=== PATIENT | male | born 1960 | race Caucasian/White ===

== ENCOUNTER 2016-09-21 21:23 | Inpatient (IN) | payer OTHER ==
[2016-09-21] MEDS ORDERED: Acetaminophen/oxyCODONE 325-5 MG Tab PO STA (21:45)
[2016-09-21] MEDS ORDERED: Diazepam 5 MG Tab PO ONE (21:45)
--- NOTE | 2016-09-21 21:50 | EDM.PDOC ---
ED HPI Trauma - General Chief Complaint: Lower Extremity Injury/Pain Stated Complaint: FALL, LEFT HIP PAIN Time Seen by Provider: 09/21/16 21:33 Source: Reports: Patient History Limitations: Reports: No limitations - History of Present Illness INITIAL COMMENTS - FREE TEXT/NARRATIVE: Blue is a 56 year old male with a hx of high cholesterol who presents to the ED today via private care with c/o left hip pain after slipping and falling on the ice and landing on his left hip. Patient reports increased pain shooting down his left leg when he tries to walk on it. He has not had anything for pain. Patient denies any other injuries, denies any neck, head, or back trauma. Occurred When: just prior to arrival Method of Injury: fall Severity: moderate Pain/Injury Location: Reports: lower extremity, left Associated Symptoms: Reports: denies other symptoms Allergies/ADRs: Allergies Penicillins Allergy (Verified 09/21/16 21:35) Rash Home Medications: Ambulatory Orders Simvastatin [Zocor] 40 mg PO BEDTIME 09/21/16 [Confirmed 09/21/16] Past Medical History Cardiovascular History: Reports: High cholesterol Review of Systems - Review of Systems Review Of Systems: ROS reveals no pertinent complaints other than HPI. Trauma Exam - Physical Exam Exam: See Below Exam Limited By: No limitations General Appearance: Reports: alert, WD/WN, no apparent distress Head: Reports: atraumatic Neck: Reports: non-tender, full range of motion Respiratory Exam: Reports: no respiratory distress Cardiovascular: Reports: normal peripheral pulses Extremities: Reports: pelvis stable, pain with movement, other (tenderness to left hip/proximal left femur region on exam, no obvious defomity, distal and proximal pulses are intact, strength to left foot flexion/extension is 5/5. Pelvis is stable. Patient with femur manipulation) Neurologic: Reports: no motor/sensory deficits, oriented x 3 Course - Vital Signs Text/Narrative:: Blue is a 56 year old male with a hx of high cholesterol who presents to the ED tonight with c/o left hip pain after slipping and falling on the ice, landing on his left hip. Patient denies any other injuries. Please refer to HPI and focused exam. Concerns for hip vs. pelvis vs. proximal femur fracture. No deformity on exam and CMS is intact. Patient was given Percocet and Valium while in the ED for pain and muscle spasm. Femur Xray obtained as well as CT of pelvis and left hip which shows an acute non-displaced intertrochanteric fracture. I spoke with CINTHYA Foreman with orthopedics who will be in to evaluate patient. PIV established and patient given morphine for pain control. Basic lab work pending. Last Recorded V/S: Last Vital Signs Temp 37.3 C 09/21/16 22:37 Pulse 76 09/21/16 22:37 Resp 16 09/21/16 22:37 BP 116/75 09/21/16 22:37 Pulse Ox 94 L 09/21/16 22:37 - Orders/Labs/Meds Orders: Active Orders 24 hr Category Date Time Status Peripheral IV Care [RC] . DIRECTED Care 09/21/16 23:10 Active Femur Min 2V Lt [CR] Stat Exams 09/21/16 21:46 Taken Hip wo Cont Lt [CT] Stat Exams 09/21/16 21:53 Taken Pelvis wo Cont [CT] Stat Exams 09/21/16 21:53 Ordered BASIC METABOLIC PANEL,BMP [CHEM] Stat Lab 09/21/16 23:11 Ordered CBC WITH AUTO DIFF [HEME] Stat Lab 09/21/16 23:11 Ordered Sodium Chloride 0.9% [Saline Flush] Med 09/21/16 23:10 Active 10 ml FLUSH ASDIRECTED PRN Peripheral IV Insertion Adult [OM.PC] Routine Oth 09/21/16 23:10 Ordered Medication Orders Sodium Chloride (Saline Flush) 10 ml FLUSH ASDIRECTED PRN PRN Reason: Keep Vein Open Meds: Medications Generic Name Dose Route Start Last Admin Trade Name Freq PRN Reason Stop Dose Admin Sodium Chloride 10 ml 09/21/16 23:10 Saline Flush FLUSH ASDIRECTED PRN Keep Vein Open Discontinued Medications Generic Name Dose Route Start Last Admin Trade Name Freq PRN Reason Stop Dose Admin Diazepam 10 mg 09/21/16 21:45 09/21/16 21:56 Valium. PO 09/21/16 21:46 10 mg ONETIME ONE Administration Morphine Sulfate 4 mg 09/21/16 23:10 Morphine IVPUSH 09/21/16 23:11 ONETIME ONE Oxycodone/Acetaminophen 2 tab 09/21/16 21:45 09/21/16 21:56 Percocet 325-5 Mg PO 09/21/16 21:46 2 tab ONETIME STA Administration Departure - Departure Time of Disposition: 23:30 Disposition: Admitted As Inpatient 65 Condition: good Clinical Impression: Intertrochanteric fracture, hip Forms: ED Department Discharge - My Orders Last 24 Hours: My Active Orders 09/21/16 21:46 Femur Min 2V Lt [CR] Stat 09/21/16 21:53 Hip wo Cont Lt [CT] Stat Pelvis wo Cont [CT] Stat 09/21/16 23:10 Peripheral IV Care [RC] . DIRECTED Sodium Chloride 0.9% [Saline Flush] 10 ml FLUSH ASDIRECTED PRN Peripheral IV Insertion Adult [OM.PC] Routine 09/21/16 23:11 BASIC METABOLIC PANEL,BMP [CHEM] Stat CBC WITH AUTO DIFF [HEME] Stat - Assessment/Plan Last 24 Hours: My Active Orders 09/21/16 21:46 Femur Min 2V Lt [CR] Stat 09/21/16 21:53 Hip wo Cont Lt [CT] Stat Pelvis wo Cont [CT] Stat 09/21/16 23:10 Peripheral IV Care [RC] . DIRECTED Sodium Chloride 0.9% [Saline Flush] 10 ml FLUSH ASDIRECTED PRN Peripheral IV Insertion Adult [OM.PC] Routine 09/21/16 23:11 BASIC METABOLIC PANEL,BMP [CHEM] Stat CBC WITH AUTO DIFF [HEME] Stat
[2016-09-21] MEDS ORDERED: Morphine 4 MG/ML Syringe IVPUSH ONE (23:10)
[2016-09-21] MEDS ORDERED: Sodium Chloride 0.9% 10 ML Syringe FLUSH PRN (23:10)
--- NOTE | 2016-09-22 00:03 | PCM.CONS ---
H&P History of Present Illness - General Date of Service: 09/21/16 Source of Information: Patient History Limitations: Reports: No limitations - History of Present Illness Initial Comments - Free Text/Narative: Blue is a 56 year old gentleman who I had the pleasure of meeting tonight. He states that he was ice fishing and slipped on the ice landing on his left hip. He notes no other injuries. He states that alcohol was not involved. He noted immediate pain in that are. He notes that he made his way [place] to [place] and was brought in by his friend to the ER. The ER did an xray and a CT and noted that he had an acute nondisplaced intertrochanteric fracture in the left femur. He was given morphine and valium and is doing well with pain control at this time. Onset of Symptoms: Reports: today Symptom Onset Time: 20:00 Location: Reports: lower extremity, left Quality: Reports: Ache Improves with: Reports: Rest Worsens with: Reports: Movement Associated Symptoms: Reports: denies other symptoms 9 Pain Score (Numeric/FACES): 6 - Related Data Allergies/Adverse Reactions: Allergies Allergy/AdvReac Type Severity Reaction Status Date / Time Penicillins Allergy Rash Verified 09/21/16 21:35 Home Medications: Home Meds Simvastatin [Zocor] 40 mg PO BEDTIME 09/21/16 [History] Acetaminophen/oxyCODONE [Percocet 325-5 MG] 2 tab PO Q4H PRN #120 tablet [Rx] Aspirin [Ecotrin] 325 mg PO BID #60 tab.ec 09/24/16 [Rx] Past Medical History Cardiovascular History: Reports: High cholesterol H&P Review of Systems - Review of Systems: Review Of Systems: See Below General: Reports: no symptoms HEENT: Reports: no symptoms Pulmonary: Reports: No Symptoms Cardiovascular: Reports: no symptoms Gastrointestinal: Reports: No symptoms Genitourinary: Reports: no symptoms Musculoskeletal: Reports: leg pain, joint pain Skin: Reports: no symptoms Psychiatric: Reports: no symptoms Neurological: Reports: No Symptoms Hematologic/Lymphatic: Reports: no symptoms Immunologic: Reports: no symptoms Exam - Exam Exam: See Below - Vital Signs Vital Signs: Last Vital Signs Temp 37.3 C 09/21/16 22:37 Pulse 76 09/21/16 22:37 Resp 16 09/21/16 22:37 BP 116/75 09/21/16 22:37 Pulse Ox 94 L 09/21/16 22:37 Weight: 160 lb - Exam Extremities: normal pulses, other (Patient has slight external rotation and shortening of the left hip. ) Peripheral Pulses: 2+: dorsalis pedis (L), dorsalis pedis (R) Skin: warm, dry, intact Neurological: cranial nerves intact Neuro Extensive - Mental Status: alert, oriented x3, normal mood/affect, normal cognition, memory intact - Patient Data Lab Results last 24 hrs: Laboratory Results - last 24 hr 09/21/16 09/21/16 Range/Units 23:11 23:11 WBC 17.6 H (4.5-11.0) K/uL RBC 4.81 (4.30-5.90) M/uL Hgb 14.8 (12.0-15.0) g/dL Hct 43.7 (40.0-54.0) % MCV 91 (80-98) fL MCH 31 (27-31) pg MCHC 34 (32-36) % Plt Count 353 (150-400) K/uL Neut % (Auto) 88 H (36-66) % Lymph % (Auto) 6 L (24-44) % [place] % (Auto) 6 (2-6) % Eos % (Auto) 0 L (2-4) % Baso % (Auto) 0 (0-1) % Sodium 144 (140-148) mmol/L Potassium 3.8 (3.6-5.2) mmol/L Chloride 107 (100-108) mmol/L Carbon Dioxide 25 (21-32) mmol/L Anion Gap 12.2 (5.0-14.0) mmol/L BUN 22 H (7-18) mg/dL Creatinine 1.0 (0.8-1.3) mg/dL Est Cr Clr Drug Dosing 81.50 mL/min Estimated GFR (MDRD) > 60 (>60) Glucose 118 H (74-106) mg/dL Calcium 8.4 L (8.5-10.1) mg/dL Result Diagrams: 09/24/16 04:55 09/24/16 04:55 Consult PN Assessment/Plan Problem List Initiated/Reviewed/Updated: Yes Plan: I discussed case with Dr. Efe Nieto. We will have the hospitalist admit. We will plan on scheduling surgery at 1200 on 09/23/2016. We will order for Clindamycin to be given in OR. He will need to be NPO.
[2016-09-22] MEDS ORDERED: HYDROmorphone 0.5 MG/0.5 ML Syringe IVPUSH ONE (00:43)
--- NOTE | 2016-09-22 00:55 | PCM.HP ---
H&P History of Present Illness - General Date of Service: 09/22/16 Admit Problem/Dx: Source of Information: Patient, Provider, RN notes reviewed History Limitations: Reports: No limitations - History of Present Illness Initial Comments - Free Text/Narative: This patient is a 56-year-old gentleman who was admitted through the emergency room with a left hip fracture. He was out on the leg ice fishing when he slipped and fell on his left hip. On evaluation in the emergency Department has been found to have an intatrochanteric fracture of the left hip. He is otherwise relatively healthy and denies significant cardiac or pulmonary disease. He's never had surgery with general anesthesia and denies a family history of adverse reaction to general anesthetic. There is no personal or family history of deep vein thrombosis, pulmonary embolism, or bleeding abnormalities. - Related Data Allergies/Adverse Reactions: Allergies Allergy/AdvReac Type Severity Reaction Status Date / Time Penicillins Allergy Rash Verified 09/21/16 21:35 Home Medications: Home Meds Simvastatin [Zocor] 40 mg PO BEDTIME 09/21/16 [History] Past Medical History Cardiovascular History: Reports: High cholesterol H&P Review of Systems - Review of Systems: Review Of Systems: See Below General: Reports: no symptoms HEENT: Reports: no symptoms Pulmonary: Reports: no symptoms Cardiovascular: Reports: no symptoms Gastrointestinal: Reports: No symptoms Genitourinary: Reports: no symptoms Musculoskeletal: Reports: leg pain Skin: Reports: no symptoms Psychiatric: Reports: no symptoms Neurological: Reports: no symptoms Hematologic/Lymphatic: Reports: no symptoms Immunologic: Reports: no symptoms Exam - Exam Exam: See Below - Vital Signs Vital Signs: Last Vital Signs Temp 99.1 F 09/21/16 22:37 Pulse 76 09/21/16 22:37 Resp 16 09/21/16 22:37 BP 116/75 09/21/16 22:37 Pulse Ox 94 L 09/21/16 22:37 Weight: 160 lb - Exam Quality Assessment: DVT prophylaxis General: alert, oriented, cooperative, moderate distress HEENT: Conjunctiva clear, EOMI, Hearing intact, Mucosa moist & pink, Nares patent, Normal nasal septum, Posterior pharynx clear, Pupils equal, Pupils reactive Neck: supple, trachea midline, +2 carotid pulse wo bruit Lungs: Clear to auscultation, Normal respiratory effort Cardiovascular: regular rate, regular rhythm, normal S1, normal S2. No: irregular rhythm, bradycardia, tachycardia, systolic murmur, diastolic murmur Abdomen: normal bowel sounds, soft Extremities: other (External rotation of the left leg) Skin: warm, dry, intact Neurological: cranial nerves intact, strength equal bilateral, normal speech, normal tone, sensation intact. No: focal deficit Neuro Extensive - Mental Status: alert, oriented x3, normal mood/affect, normal cognition, memory intact - Patient Data Lab Results last 24 hrs: Laboratory Results - last 24 hr 09/21/16 09/21/16 Range/Units 23:11 23:11 WBC 17.6 H (4.5-11.0) K/uL RBC 4.81 (4.30-5.90) M/uL Hgb 14.8 (12.0-15.0) g/dL Hct 43.7 (40.0-54.0) % MCV 91 (80-98) fL MCH 31 (27-31) pg MCHC 34 (32-36) % Plt Count 353 (150-400) K/uL Neut % (Auto) 88 H (36-66) % Lymph % (Auto) 6 L (24-44) % [place] % (Auto) 6 (2-6) % Eos % (Auto) 0 L (2-4) % Baso % (Auto) 0 (0-1) % Sodium 144 (140-148) mmol/L Potassium 3.8 (3.6-5.2) mmol/L Chloride 107 (100-108) mmol/L Carbon Dioxide 25 (21-32) mmol/L Anion Gap 12.2 (5.0-14.0) mmol/L BUN 22 H (7-18) mg/dL Creatinine 1.0 (0.8-1.3) mg/dL Est Cr Clr Drug Dosing 81.50 mL/min Estimated GFR (MDRD) > 60 (>60) Glucose 118 H (74-106) mg/dL Calcium 8.4 L (8.5-10.1) mg/dL Result Diagrams: 09/21/16 23:11 09/21/16 23:11 *Q Meaningful Use (ADM) - VTE *Q VTE Criteria *Q: - VTE Risk Assess *Q Each Risk Factor Represents 1 Point: Age 41 - 59 years Total Score 1 Point Risk Factors: 1 Each Risk Factor Represents 2 Points: None Total Score 2 Point Risk Factors: 0 Each Risk Factor Represents 3 Points: None Total Score 3 Point Risk Factors: 0 Each Risk Factor Represents 5 Points: Hip, Pelvis or Leg Fracture, Less than 1 month Total Score 5 Point Risk Factors: 5 Venous Thromboembolism Risk Factor Score *Q: 6 - Stroke *Q Stroke Criteria *Q: - AMI *Q AMI Criteria *Q: Problem List Initiated/Reviewed/Updated: Yes Orders Last 24hrs: Active Orders 24 hr Category Date Time Status Patient Status Manage Transfer [TRANSFER] Routine ADT 09/22/16 00:43 Ordered Peripheral IV Care [RC] . DIRECTED Care 09/21/16 23:10 Active Femur Min 2V Lt [CR] Stat Exams 09/21/16 21:46 Taken Hip wo Cont Lt [CT] Stat Exams 09/21/16 21:53 Taken Pelvis wo Cont [CT] Stat Exams 09/21/16 21:53 Ordered Clindamycin Phosphate [Cleocin] 600 mg Med 09/22/16 11:30 Ordered Sodium Chloride 0.9% [Normal Saline] 50 ml IV Q8H HYDROmorphone [Dilaudid] Med 09/22/16 00:43 Once 0.5 mg IVPUSH ONETIME ONE Sodium Chloride 0.9% [Saline Flush] Med 09/21/16 23:10 Active 10 ml FLUSH ASDIRECTED PRN Peripheral IV Insertion Adult [OM.PC] Routine Oth 09/21/16 23:10 Ordered Resuscitation Status Routine Resus Stat 09/22/16 00:44 Ordered Medication Orders Hydromorphone HCl (Dilaudid) 0.5 mg IVPUSH ONETIME ONE Stop: 09/22/16 00:44 Clindamycin Phosphate 600 mg/ (Sodium Chloride) 54 mls @ 100 mls/hr IV Q8H ALEC Stop: 09/23/16 04:03 Sodium Chloride (Saline Flush) 10 ml FLUSH ASDIRECTED PRN PRN Reason: Keep Vein Open Last Admin: 09/21/16 23:18 Dose: 10 ml Assessment/Plan Comment:: ASSESSMENT AND PLAN LEFT HIP FRACTURE-occurred when he fell on the ice this evening, otherwise healthy and cleared for surgery in a.m. -Care and management per orthopedic service HYPERCHOLESTEROLEMIA -Continue outpatient medical regimen MAINTENANCE ISSUES -DVT prophylaxis; SCUDs -GI prophylaxis; not indicated -Buckley catheter; not indicated -Nutrition; n.p.o. until after surgery -Nicotine dependence; not required CODE STATUS-FULL CODE ADMISSION STATUS-patient will be admitted to inpatient status, expect at least a 2 night hospital stay for evaluation and management of problems as outlined above. At the time of this admission I do not reasonably expected evaluation and management of this problem will require more than a 96 hour hospital stay. DISPOSITION-anticipate discharge to home after the hospital stay. PRIMARY CARE PROVIDER-
[2016-09-22] MEDS ORDERED: Magnesium Hydroxide 400 MG/5 ML Susp 30 ML Cup PO PRN (01:10)
[2016-09-22] MEDS ORDERED: Ondansetron 4 MG/2 ML SDV IV PRN (01:10)
[2016-09-22] MEDS ORDERED: Sodium Chloride 0.9% 10 ML Syringe FLUSH PRN (01:10)
[2016-09-22] MEDS ORDERED: Lactated Ringers 1,000 ML IV SCH ×2 (01:10→14:15)
[2016-09-22] MEDS ORDERED: Polyethylene Glycol 3350 Powder 17 GM Packet PO PRN (01:10)
[2016-09-22] MEDS ORDERED: Docusate Sodium 100 MG Cap PO PRN (01:10)
[2016-09-22] MEDS: HYDROmorphone 0.5 MG/0.5 ML Syringe IVPUSH PRN ×6 (03:00→10:49)
[2016-09-22] MEDS ORDERED: Midazolam 1 MG/ML 2 ML SDV ONE (10:52)
[2016-09-22] MEDS ORDERED: fentaNYL 250 MCG/5 ML SDV ONE (10:52)
[2016-09-22] MEDS ORDERED: Rocuronium 50 MG/5 ML Vial ONE (10:53)
[2016-09-22] MEDS ORDERED: Propofol 200 MG/20 ML SDV ONE (10:53)
[2016-09-22] MEDS ORDERED: Neostigmine Methylsulfate 1 MG/ML 5 ML Syringe ONE (10:53)
[2016-09-22] MEDS ORDERED: Ondansetron 4 MG/2 ML SDV ONE (10:53)
[2016-09-22] MEDS ORDERED: Dexamethasone 4 MG/ML SDV ONE (10:53)
[2016-09-22] MEDS ORDERED: Bupivacaine 0.5%/EPINEPHrine 1:200,000 50 ML MDV ONE (12:35)
--- NOTE | 2016-09-22 12:35 | PCM.PN ---
- General Info Date of Service: 09/22/16 Functional Status: Reports: pain controlled - Review of Systems Pulmonary: Reports: no symptoms Cardiovascular: Reports: no symptoms Gastrointestinal: Reports: No symptoms Systems Review Comment:: This patient has been stable since admission early this morning, pain control has been adequate. Vital signs have been stable when he has remained afebrile. Currently denies any symptoms of chest pain or pressure, shortness of breath, or nausea and vomiting. - Patient Data Vitals - most recent: Last Vital Signs Temp 99.8 F 09/22/16 07:10 Pulse 63 09/22/16 07:10 Resp 16 09/22/16 07:10 BP 96/70 09/22/16 07:10 Pulse Ox 93 L 09/22/16 07:34 Weight - most recent: 160 lb 11.472 oz I&O - last 24 hours: Intake & Output 09/21/16 09/22/16 09/22/16 22:59 06:59 14:59 Intake Total 682 Balance 682 Med Orders - Current: Current Medications Docusate Sodium (Colace) 100 mg PO BID PRN PRN Reason: Constipation Hydromorphone HCl (Dilaudid) 0.5 mg IVPUSH Q1H PRN PRN Reason: Pain Last Admin: 09/22/16 10:49 Dose: 0.5 mg Clindamycin Phosphate 600 mg/ (Sodium Chloride) 54 mls @ 100 mls/hr IV Q8H COUNT INCLUDES THE [facility] Stop: 09/23/16 04:03 Last Admin: 09/22/16 11:47 Dose: 100 mls/hr Lactated Ringer's (Ringers, Lactated) 1,000 mls @ 125 mls/hr IV ASDIRECTED COUNT INCLUDES THE [facility] Last Admin: 09/22/16 09:32 Dose: 125 mls/hr Magnesium Hydroxide (Milk Of Magnesia) 30 ml PO Q12H PRN PRN Reason: Constipation Ondansetron HCl (Zofran) 4 mg IV Q4H PRN PRN Reason: Nausea/Vomiting Polyethylene Glycol (Miralax) 17 gm PO DAILY PRN PRN Reason: Constipation Simvastatin (Zocor) 40 mg PO BEDTIME COUNT INCLUDES THE [facility] Sodium Chloride (Saline Flush) 10 ml FLUSH ASDIRECTED PRN PRN Reason: Keep Vein Open Discontinued Medications Dexamethasone (Dexamethasone) Confirm Administered Dose 4 mg .ROUTE .STK-MED ONE Stop: 09/22/16 10:54 Diazepam (Valium.) 10 mg PO ONETIME ONE Stop: 09/21/16 21:46 Last Admin: 09/21/16 21:56 Dose: 10 mg Fentanyl (Sublimaze) Confirm Administered Dose 250 mcg .ROUTE .STK-MED ONE Stop: 09/22/16 10:53 Glycopyrrolate () Confirm Administered Dose 1 mg .ROUTE .STK-MED ONE Stop: 09/22/16 10:54 Hydromorphone HCl (Dilaudid) 0.5 mg IVPUSH ONETIME ONE Stop: 09/22/16 00:44 Last Admin: 09/22/16 01:28 Dose: 0.5 mg Midazolam HCl (Versed 1 Mg/Ml) Confirm Administered Dose 2 mg .ROUTE .STK-MED ONE Stop: 09/22/16 10:53 Morphine Sulfate (Morphine) 4 mg IVPUSH ONETIME ONE Stop: 09/21/16 23:11 Last Admin: 09/21/16 23:17 Dose: 4 mg Neostigmine Methylsulfate (Neostigmine) Confirm Administered Dose 5 mg .ROUTE .STK-MED ONE Stop: 09/22/16 10:54 Ondansetron HCl (Zofran) Confirm Administered Dose 4 mg .ROUTE .STK-MED ONE Stop: 09/22/16 10:54 Oxycodone/Acetaminophen (Percocet 325-5 Mg) 2 tab PO ONETIME STA Stop: 09/21/16 21:46 Last Admin: 09/21/16 21:56 Dose: 2 tab Propofol (Diprivan 20 Ml) Confirm Administered Dose 200 mg .ROUTE .STK-MED ONE Stop: 09/22/16 10:54 Rocuronium [place]liam[place] (Zemuron) Confirm Administered Dose 50 mg .ROUTE .STK-MED ONE Stop: 09/22/16 10:54 Sodium Chloride (Saline Flush) 10 ml FLUSH ASDIRECTED PRN PRN Reason: Keep Vein Open Last Admin: 09/21/16 23:18 Dose: 10 ml - Exam Quality Assessment: DVT prophylaxis General: alert, oriented, cooperative, no acute distress Lungs: Clear to auscultation, Normal respiratory effort Cardiovascular: regular rate, regular rhythm Abdomen: bowel sounds present, soft, no tenderness, no distension Extremities: no edema Skin: warm, dry, intact - Problem List Review Problem List Initiated/Reviewed/Updated: Yes - My Orders Last 24 Hours: My Active Orders 09/22/16 00:44 Resuscitation Status Routine 09/22/16 01:10 Patient Status [ADT] Routine Bedrest Bedside Commode [RC] ASDIRECTED Intake and Output [RC] QSHIFT Notify Provider Vital Signs [RC] ASDIRECTED Overnight Pulse Oximetry [RC] Click to Edit Oxygen Therapy [RC] PRN VTE/DVT Education [RC] Per Unit Routine Vital Signs [RC] Q4H UA W/MICROSCOPIC [URIN] Stat Docusate Sodium [Colace] 100 mg PO BID PRN HYDROmorphone [Dilaudid] 0.5 mg IVPUSH Q1H PRN Lactated Ringers [Ringers, Lactated] 1,000 ml IV ASDIRECTED Magnesium Hydroxide [Milk of Magnesia] 30 ml PO Q12H PRN Ondansetron [Zofran] 4 mg IV Q4H PRN Polyethylene Glycol 3350 [MiraLAX] 17 gm PO DAILY PRN Sodium Chloride 0.9% [Saline Flush] 10 ml FLUSH ASDIRECTED PRN Peripheral IV Insertion Adult [OM.PC] Routine Pulse Oximetry Continuous Monitoring [OM.PC] Routine Sequential Compression Device [OM.PC] Per Unit Routine EKG 12 Lead [EK] Stat 09/22/16 Breakfast Nothing per Oral Now Diet [DIET] - Plan Plan:: ASSESSMENT AND PLAN LEFT HIP FRACTURE-To OR today for surgical repair of hip fracture -Care and management per orthopedic service HYPERCHOLESTEROLEMIA -Continue outpatient medical regimen MAINTENANCE ISSUES -DVT prophylaxis; SCUDs -GI prophylaxis; not indicated -Buckley catheter; not indicated -Nutrition; n.p.o. until after surgery -Nicotine dependence; not required CODE STATUS-FULL CODE ADMISSION STATUS-patient will be admitted to inpatient status, expect at least a 2 night hospital stay for evaluation and management of problems as outlined above. At the time of this admission I do not reasonably expected evaluation and management of this problem will require more than a 96 hour hospital stay. DISPOSITION-anticipate discharge to home after the hospital stay. PRIMARY CARE PROVIDER-
[2016-09-22] MEDS ORDERED: Povidone-Iodine 10% Soln 118.25 ML Bottle ONE (13:12)
[2016-09-22] MEDS ORDERED: Ondansetron 4 MG/2 ML SDV IVPUSH PRN (14:04)
[2016-09-22] MEDS ORDERED: Ketorolac 30 MG/ML SDV IVPUSH PRN (14:04)
[2016-09-22] MEDS ORDERED: Aluminum Hydroxide/Magnesium Hydroxide/Simethicone Susp 30 ML Cup PO PRN (14:04)
[2016-09-22] MEDS ORDERED: Naloxone 0.4 MG/ML SDV IVPUSH PRN (14:04)
[2016-09-22] MEDS ORDERED: Sennosides 8.6 MG Tab PO PRN (14:04)
[2016-09-22] MEDS ORDERED: Bisacodyl 5 MG Tab PO PRN (14:04)
[2016-09-22] MEDS ORDERED: diphenhydrAMINE 50 MG/ML SDV IVPUSH PRN (14:04)
[2016-09-22] MEDS ORDERED: Zolpidem 5 MG Tab PO PRN (14:04)
[2016-09-22] MEDS ORDERED: Morphine 2 MG/ML Syringe IVPUSH PRN (14:04)
[2016-09-22] MEDS: Acetaminophen/oxyCODONE 325-5 MG Tab PO PRN ×2 (17:52→23:18)
[2016-09-22] MEDS: traMADol 50 MG Tab PO PRN (20:17)
--- NOTE | 2016-09-22 21:12 | OR ---
DATE OF PROCEDURE: 09/22/2016 PREOPERATIVE DIAGNOSIS: Left hip intertrochanteric fracture, closed. POSTOPERATIVE DIAGNOSIS: Left hip intertrochanteric fracture, closed. PROCEDURE: Cephalomedullary nailing, left femur. MODEL SET ARTIST: THA Acosta. ANESTHESIA: General endotracheal intubation. FLUID: Lactated Ringer solution. ESTIMATED BLOOD LOSS: 150 mL. COMPLICATIONS: None. SPECIMEN: None. DISCHARGE DISPOSITION: Stable to PACU. INSTRUMENTATION: Synthes TFN 340 x 12 mm nail with 85 mm femoral head nail and 36 mm distal locking screw. INDICATIONS FOR THE PROCEDURE: The patient was out on the ice on the [facility], yesterday when he slipped and fell on the ice. He was seen in the emergency department, where he was found to have a displaced intertrochanteric fracture. He is admitted to the hospitalist service. Risks and benefits of the procedure were explained to the patient. Informed consent was obtained. Preoperative imaging confirmed the above-mentioned diagnosis. DETAILS OF PROCEDURE: The patient was seen preoperatively by myself and the Anesthesia staff in the preoperative holding area where the operative site was marked. He was brought to the operative suite by the Anesthesia staff where general anesthesia was administered. All extremities were found to be well padded. His bilateral lower extremities were placed into a traction boots. The left lower extremity was then prepped and draped in a sterile manner. The fluoroscopy unit was draped in sterile manner. Time-out was called identifying the correct patient, the correct procedure, the correct site, and antibiotics had been given within the appropriate period of time. Prior to prepping, sterile Buckley catheter had been placed and 750 mL of urine was collected. The fluoroscopy unit was used in AP view to visualize the greater trochanter. Incision was made approximately 5 cm proximal to the greater trochanter extended approximately 3 cm down to the deep fascia. Starting awl was then used at the medial aspect of the greater trochanter and then taken down to the level of lesser trochanter in line with the junction of the middle posterior 1/3rd of the femur. A ball-tipped guidewire was then placed down to the knee and then retracted slightly and this was confirmed on fluoroscopy. The nail was measured at 340 mm, I then used a 16 mm reamer followed by intramedullary reaming with an 8.5, 9, 10, 11, 12, 13, 13.5 mm reamers. We did get good chatter. I then inserted the nail over the ball-tipped probe. We then made an incision for our distal guide into the femoral head and cut through that fashion the skin and then inserted the guidewire after outrigger to the bone, which was confirmed on AP fluoroscopy. I then inserted the guidewire and then went to lateral. I did this a few times until I got what I thought would be a less than tip apex distance of 2.5 cm. I then reamed the lateral cortex followed by measuring 85 mm screw into the femoral head and then reamed into the femoral head. I then placed the screw, I then removed all the outrigger. The AP view looked excellent, but the lateral view looked slightly anterior more than I would like, I would have been within acceptable limits given that the patient is a very young person. I elected to replace the outrigger and then removed the screw into the femoral head. I then got a better distance on my tip-apex distance on the lateral view which put it more anterior. I then re-reamed the lateral cortex, re-reamed for the screw head into the femoral head. I then placed the 85 mm screw, this was in much better position with the tip-apex distance probably less than 1 cm. The screw into the femoral head was then compressed and then locked proximally into the nail, I then removed the outrigger and took AP and lateral views proximally, this showed good reduction and alignment as well as tip-apex distance. I then used the perfect mechoopda technique to place my distal locking screw through the oblong hole, this was placed with a 36 mm screw, I then took AP and lateral final films and then copiously irrigated with saline. I closed the deep fascia proximally and the proximal two incisions with 2-0 Vicryl pops followed by skin negrita and three all incisions followed by 0.5% Marcaine with epinephrine, followed by sponges and Medipore tape. The patient was then transferred to his hospital bed in good condition and taken to the PACU in good condition. Efe Nieto DO /[id number]
[2016-09-22] MEDS: Simvastatin 20 MG Tab PO SCH (21:32)
[2016-09-22] MEDS: Aspirin 325 MG Tab.EC PO SCH (21:32)
[2016-09-23] MEDS: traMADol 50 MG Tab PO PRN (03:43)
[2016-09-23] MEDS: Acetaminophen/oxyCODONE 325-5 MG Tab PO PRN ×5 (03:44→22:06)
[2016-09-23] MEDS ORDERED: Lidocaine 2% Jelly 10 ML Urojet MUCMEM STA (04:01)
[2016-09-23] MEDS: Aspirin 325 MG Tab.EC PO SCH ×2 (08:45→22:07)
[2016-09-23] MEDS ORDERED: Albuterol 8 GM Inhaler INH PRN (09:00)
--- NOTE | 2016-09-23 09:21 | CR ---
Femur Min 2V Lt HISTORY: Fall. COMPARISON: None FINDINGS: Oblique fracture in the intertrochanteric region extending into the very proximal shaft of the left femur. There is mild displacement. Mid and distal femur appear intact. No hip dislocation. The visualized pubic rami appear intact.
--- NOTE | 2016-09-23 10:07 | CR ---
Chest 2V HISTORY: Low oxygen saturation. COMPARISON: None FINDINGS: Slightly limited inspiration. Tiny right-sided pleural effusion. No focal infiltrates.
[2016-09-23] MEDS: Albuterol/Ipratropium 3.0-0.5 MG/3 ML Neb Soln NEB SCH ×3 (10:55→22:06)
[2016-09-23] MEDS: Sodium Chloride 0.9% 10 ML Syringe FLUSH SCH (13:59)
--- NOTE | 2016-09-23 14:08 | PCM.PN ---
- General Info Date of Service: 09/23/16 Functional Status: Reports: pain controlled, tolerating diet, ambulating - Review of Systems Genitourinary: Reports: retention Musculoskeletal: Reports: joint pain Systems Review Comment:: difficulty with urinary retention overnight and required straight catheterization once at 4:32 AM. Moderate left hip pain with ambulation but no pain when he is at rest. No complaints of abdominal pain or shortness of breath. He did require supplemental oxygen for a while do to intermittent dips in his oxygenation. Appetite has been good. He is planning to add back to the [email or web address] upon discharge, hoping for tomorrow. - Patient Data Vitals - most recent: Last Vital Signs Temp 36.7 C 09/23/16 10:44 Pulse 68 09/23/16 10:59 Resp 18 09/23/16 10:44 BP 110/69 09/23/16 10:44 Pulse Ox 97 09/23/16 10:59 Weight - most recent: 72.9 kg I&O - last 24 hours: Intake & Output 09/22/16 09/23/16 09/23/16 22:59 06:59 14:59 Intake Total 134 99 8735 Output Total 550 0 Balance 860 -500 2360 Lab Results last 24 hrs: Laboratory Results - last 24 hr 09/23/16 09/23/16 Range/Units 04:30 04:30 WBC 14.6 H (4.5-11.0) K/uL RBC 3.98 L (4.30-5.90) M/uL Hgb 12.4 D (12.0-15.0) g/dL Hct 37.0 L (40.0-54.0) % MCV 93 (80-98) fL MCH 31 (27-31) pg MCHC 34 (32-36) % Plt Count 299 (150-400) K/uL Neut % (Auto) 76 H (36-66) % Lymph % (Auto) 12 L (24-44) % [place] % (Auto) 12 H (2-6) % Eos % (Auto) 0 L (2-4) % Baso % (Auto) 0 (0-1) % Sodium 140 (140-148) mmol/L Potassium 3.7 (3.6-5.2) mmol/L Chloride 104 (100-108) mmol/L Carbon Dioxide 27 (21-32) mmol/L Anion Gap 9.5 (5.0-14.0) mmol/L BUN 18 (7-18) mg/dL Creatinine 1.0 (0.8-1.3) mg/dL Est Cr Clr Drug Dosing 81.50 mL/min Estimated GFR (MDRD) > 60 (>60) Glucose 106 (74-106) mg/dL Calcium 8.0 L (8.5-10.1) mg/dL Total Bilirubin 0.8 (0.2-1.0) mg/dL AST 23 (15-37) U/L ALT 18 (12-78) U/L Alkaline Phosphatase 21 L (46-116) U/L Total Protein 6.2 L (6.4-8.2) g/dL Albumin 3.2 L (3.4-5.0) g/dL Globulin 3.0 (2.3-3.5) g/dL Albumin/Globulin Ratio 1.1 L (1.2-2.2) Med Orders - Current: Current Medications Al Hydroxide/Mg Hydroxide (Mag-Al Plus) 30 ml PO Q4H PRN PRN Reason: Constipation Albuterol (Ventolin Hfa) 0 gm INH Q2H PRN PRN Reason: Dyspnea Albuterol/Ipratropium (Duoneb 3.0-0.5 Mg/3 Ml) 3 ml NEB QIDRT [facility] Last Admin: 09/23/16 10:55 Dose: 3 ml Aspirin (Ecotrin) 325 mg PO BID [facility] Last Admin: 09/23/16 08:45 Dose: 325 mg Bisacodyl (Dulcolax) 10 mg PO DAILY PRN PRN Reason: Constipation Diazepam (Valium) 5 mg IVPUSH Q6H PRN PRN Reason: Spasms Diphenhydramine HCl (Benadryl) 25 mg IVPUSH Q4H PRN PRN Reason: Itching Docusate Sodium (Colace) 100 mg PO BID PRN PRN Reason: Constipation Hydromorphone HCl (Dilaudid) 0.5 mg IVPUSH Q1H PRN PRN Reason: Pain Last Admin: 09/22/16 10:49 Dose: 0.5 mg Lactated Ringer's (Ringers, Lactated) 1,000 mls @ 100 mls/hr IV ASDIRECTED [facility] Ketorolac Tromethamine (Toradol) 30 mg IVPUSH Q8H PRN PRN Reason: Pain Stop: 09/27/16 14:04 Magnesium Hydroxide (Milk Of Magnesia) 30 ml PO Q12H PRN PRN Reason: Constipation Morphine Sulfate (Morphine) 2 mg IVPUSH Q2H PRN PRN Reason: Pain Naloxone HCl (Narcan) 0.1 mg IVPUSH ONETIME PRN PRN Reason: Oversedation Ondansetron HCl (Zofran) 4 mg IV Q4H PRN PRN Reason: Nausea/Vomiting Ondansetron HCl (Zofran) 8 mg IVPUSH Q4H PRN PRN Reason: Nausea/Vomiting Oxycodone/Acetaminophen (Percocet 325-5 Mg) 2 tab PO Q4H PRN PRN Reason: Pain Last Admin: 09/23/16 13:58 Dose: 2 tab Polyethylene Glycol (Miralax) 17 gm PO DAILY PRN PRN Reason: Constipation Senna (Senna) 8.6 mg PO BID PRN PRN Reason: Constipation Simvastatin (Zocor) 40 mg PO BEDTIME [facility] Last Admin: 09/22/16 21:32 Dose: 40 mg Sodium Chloride (Saline Flush) 10 ml FLUSH ASDIRECTED PRN PRN Reason: Keep Vein Open Sodium Chloride (Saline Flush) 10 ml FLUSH DAILY [facility] Last Admin: 09/23/16 13:59 Dose: 10 ml Tramadol HCl (Ultram) 100 mg PO Q6H PRN PRN Reason: Pain Last Admin: 09/23/16 03:43 Dose: 100 mg Zolpidem Tartrate (Ambien) 5 mg PO BEDTIME PRN PRN Reason: Sleep Discontinued Medications Bupivacaine HCl/Epinephrine Bitart (Marcaine 0.5%/Epinephrine 1:200,000) Confirm Administered Dose 50 ml .ROUTE .STK-MED ONE Stop: 09/22/16 12:36 Last Admin: 09/22/16 13:02 Dose: 20 ml Dexamethasone (Dexamethasone) Confirm Administered Dose 4 mg .ROUTE .STK-MED ONE Stop: 09/22/16 10:54 Diazepam (Valium.) 10 mg PO ONETIME ONE Stop: 09/21/16 21:46 Last Admin: 09/21/16 21:56 Dose: 10 mg Diazepam (Valium) 5 mg IVPUSH ONETIME ONE Stop: 09/22/16 14:31 Last Admin: 09/22/16 14:18 Dose: 5 mg Fentanyl (Sublimaze) Confirm Administered Dose 250 mcg .ROUTE .STK-MED ONE Stop: 09/22/16 10:53 Glycopyrrolate () Confirm Administered Dose 1 mg .ROUTE .STK-MED ONE Stop: 09/22/16 10:54 Hydromorphone HCl (Dilaudid) 0.5 mg IVPUSH ONETIME ONE Stop: 09/22/16 00:44 Last Admin: 09/22/16 01:28 Dose: 0.5 mg Clindamycin Phosphate 600 mg/ (Sodium Chloride) 54 mls @ 100 mls/hr IV Q8H [facility] Stop: 09/23/16 04:03 Last Admin: 09/23/16 03:45 Dose: 100 mls/hr Lactated Ringer's (Ringers, Lactated) 1,000 mls @ 125 mls/hr IV ASDIRECTED [facility] Last Admin: 09/22/16 09:32 Dose: 125 mls/hr Lidocaine HCl (Xylocaine 2% Jelly) 10 ml MUCMEM ONETIME STA Stop: 09/23/16 04:02 Last Admin: 09/23/16 04:38 Dose: 10 ml Midazolam HCl (Versed 1 Mg/Ml) Confirm Administered Dose 2 mg .ROUTE .STK-MED ONE Stop: 09/22/16 10:53 Morphine Sulfate (Morphine) 4 mg IVPUSH ONETIME ONE Stop: 09/21/16 23:11 Last Admin: 09/21/16 23:17 Dose: 4 mg Neostigmine Methylsulfate (Neostigmine) Confirm Administered Dose 5 mg .ROUTE .STK-MED ONE Stop: 09/22/16 10:54 Ondansetron HCl (Zofran) Confirm Administered Dose 4 mg .ROUTE .STK-MED ONE Stop: 09/22/16 10:54 Oxycodone/Acetaminophen (Percocet 325-5 Mg) 2 tab PO ONETIME STA Stop: 09/21/16 21:46 Last Admin: 09/21/16 21:56 Dose: 2 tab Povidone Iodine (Betadine 10% Soln) Confirm Administered Dose 1 ml .ROUTE .STK- MED ONE Stop: 09/22/16 13:13 Propofol (Diprivan 20 Ml) Confirm Administered Dose 200 mg .ROUTE .STK-MED ONE Stop: 09/22/16 10:54 Rocuronium [place] (Zemuron) Confirm Administered Dose 50 mg .ROUTE .STK-MED ONE Stop: 09/22/16 10:54 Sodium Chloride (Saline Flush) 10 ml FLUSH ASDIRECTED PRN PRN Reason: Keep Vein Open Last Admin: 09/21/16 23:18 Dose: 10 ml - Exam Quality Assessment: supplemental oxygen General: alert, oriented, cooperative, no acute distress Neck: supple Lungs: Clear to auscultation, Normal respiratory effort Cardiovascular: regular rate, regular rhythm. No: murmurs Abdomen: soft, no tenderness, no distension Extremities: no edema Skin: warm, dry Wound/Incisions: healing well, dressing dry and intact Psy/Mental Status: alert, normal affect - Problem List Review Problem List Initiated/Reviewed/Updated: Yes - Plan Plan:: ASSESSMENT AND PLAN LEFT HIP FRACTURE - had operative repair yesterday. Doing well postoperatively with tolerable pain. Ambulation has been improving throughout the day. -Care and management per orthopedic service Acute urinary retention - Probably secondary to narcotics, no history of urinary retention. -Straight cath when necessary -tamsulosin HYPERCHOLESTEROLEMIA -Continue outpatient medical regimen MAINTENANCE ISSUES -DVT prophylaxis; SCUDs -GI prophylaxis; not indicated -Buckley catheter; not indicated -regular diet DISPOSITION - anticipate discharge to home after the hospital stay. Pieter Duarte M.D.
[2016-09-23] MEDS ORDERED: Tamsulosin 0.4 MG Cap.ER PO ONE (21:00)
[2016-09-23] MEDS: Simvastatin 20 MG Tab PO SCH (22:07)
[2016-09-24] MEDS: Acetaminophen/oxyCODONE 325-5 MG Tab PO PRN ×3 (02:53→11:57)
[2016-09-24] MEDS: Albuterol/Ipratropium 3.0-0.5 MG/3 ML Neb Soln NEB SCH ×2 (07:06→10:44)
[2016-09-24 08:06] VITALS: BP 107/70
[2016-09-24] MEDS: Sodium Chloride 0.9% 10 ML Syringe FLUSH SCH (09:33)
[2016-09-24] MEDS: Aspirin 325 MG Tab.EC PO SCH (09:44)
--- NOTE | 2016-09-24 11:56 | PCM.DCSUM1 ---
Discharge Summary - Hospital Course Brief History: healthy 56-year-old male who presented with left hip pain after slipping and falling on the ice. He was admitted for operative fixation of a left hip fracture. - Discharge Data Discharge Date: 09/24/16 Discharge Disposition: Home, W Home Health Agency 06 Condition: Fair - Discharge Diagnosis/Problem(s) (1) Intertrochanteric fracture, hip SNOMED Code(s): 230415400 ICD Code: S72.143A - DISPLACED INTERTROCHANTERIC FRACTURE OF UNSP FEMUR, INIT Status: Acute (2) Status post fracture of femur SNOMED Code(s): 958000152 ICD Code: Z87.81 - PERSONAL HISTORY OF (HEALED) TRAUMATIC FRACTURE Status: Acute (3) Acute urinary retention SNOMED Code(s): 758982655 ICD Code: R33.8 - OTHER RETENTION OF URINE Status: Acute - Patient Summary/Data Consults: Consultations 09/22/16 14:04 OT Evaluation and Treatment [CONS] Routine Please Evaluate and Treat. OT Reason for Consult: Strengthening This query below is only for informational purposes and is not editable. Admission Diagnosis/Problem: Fracture of bone PT Evaluation and Treatment [CONS] Routine Please Evaluate and Treat. PT Reason for Consult: Strengthening This query below is only for informational purposes and is not editable. Admission Diagnosis/Problem: Fracture of bone Hospital Course: Blue presented to the emergency room with left hip pain after slipping and falling on the ice. Workup in the emergency room revealed a displaced intertrochanteric hip fracture. He was admitted to the hospital and had operative fixation the next day. There were no difficulties encountered during the preoperative or operative period. Postoperative he had some difficulty with hypoxia through the first 2 nights though this did improve each night. He also had some difficulty with acute urinary retention and required straight catheterization twice. He has shown very rapid improvement in his function. His pain has been well-controlled with oral medications. He has been working with physical therapy and doing quite well from an ambulatory standpoint. I believe he is safe for hospital discharge at this time. Initially this morning he did have some very borderline hypoxia with oxygen saturations in the 8889% range. Throughout the rest of the morning his saturations have been in the 90s. We have elected to skip supplemental home oxygen at this time given his ongoing improvement and likely extremely short duration of need if any at this point. His urinary retention has resolved without any specific intervention and was probably related to anesthesia and pain medications. He is doing well with just oral oxycodone at this time. He will need DVT prophylaxis with a full dose aspirin twice daily for the next month. Follow up will be with his PCP and ortho in the [facility]. - Patient Instructions Diet: Regular Diet as Tolerated Activity: As Tolerated Driving: Do Not Drive (if taking pain pills) Showering/Bathing: May Shower Notify Provider of: Fever, Increased Pain, Nausea and/or Vomiting Other/Special Instructions: 1. You were in the hospital for management of a left hip fracture. We will need to take aspirin 325 mg twice daily for the next month to help prevent blood clots. You can use Percocet to help with your pain as prescribed by Dr. Nieto. 2. To help avoid constipation I would recommend that you take Colace 100 mg twice daily while you're taking pain pills. A fiber supplement such as Metamucil is also a good idea. Please drink plenty of water to help maximize the effect of these pills. 3. I have placed a referral for home health care to provide nursing services to monitor your oxygen saturations as well as physical therapy to help improve your strength and function after you return home. 4. Please seek medical attention if you develop fever greater than 101, severe left hip pain or swelling of the left leg - Discharge Plan Prescriptions/Med Rec: Acetaminophen/oxyCODONE [Percocet 325-5 MG] 2 tab PO Q4H PRN #120 tablet PRN Reason: Pain Aspirin [Ecotrin] 325 mg PO BID #60 tab.ec Home Medications: Home Meds Simvastatin [Zocor] 40 mg PO BEDTIME 09/21/16 [History] Acetaminophen/oxyCODONE [Percocet 325-5 MG] 2 tab PO Q4H PRN #120 tablet [Rx] Aspirin [Ecotrin] 325 mg PO BID #60 tab.ec 09/24/16 [Rx] Patient Handouts: Constipation, Adult Referrals: PCP,None [Primary Care Provider] - (follow up with your primary care provider as needed after you return home) - Discharge Summary/Plan Comment DC Time >30 min.: No (25) - Patient Data Vitals - Most Recent: Last Vital Signs Temp 37.3 C 09/24/16 08:03 Pulse 70 09/24/16 10:45 Resp 12 09/24/16 08:03 BP 107/70 09/24/16 08:03 Pulse Ox 87 L 09/24/16 09:47 Weight - Most Recent: 72.9 kg I&O - Last 24 hours: Intake & Output 09/23/16 09/24/16 09/24/16 22:59 06:59 14:59 Intake Total 1000 200 Output Total 900 100 Balance 100 100 Lab Results - Last 24 hrs: Laboratory Results - last 24 hr 09/24/16 09/24/16 Range/Units 04:55 04:55 WBC 11.9 H (4.5-11.0) K/uL RBC 3.51 L (4.30-5.90) M/uL Hgb 10.8 L (12.0-15.0) g/dL Hct 32.9 L (40.0-54.0) % MCV 94 (80-98) fL MCH 31 (27-31) pg MCHC 33 (32-36) % Plt Count 241 (150-400) K/uL Neut % (Auto) 72 H (36-66) % Lymph % (Auto) 14 L (24-44) % [place] % (Auto) 11 H (2-6) % Eos % (Auto) 2 (2-4) % Baso % (Auto) 0 (0-1) % Sodium 139 L (140-148) mmol/L Potassium 3.4 L (3.6-5.2) mmol/L Chloride 101 (100-108) mmol/L Carbon Dioxide 31 (21-32) mmol/L Anion Gap 10.4 (5.0-14.0) mmol/L BUN 14 (7-18) mg/dL Creatinine 1.0 (0.8-1.3) mg/dL Est Cr Clr Drug Dosing 81.23 mL/min Estimated GFR (MDRD) > 60 (>60) Glucose 89 (74-106) mg/dL Calcium 7.9 L (8.5-10.1) mg/dL Total Bilirubin 0.5 (0.2-1.0) mg/dL AST 24 (15-37) U/L ALT 19 (12-78) U/L Alkaline Phosphatase 18 L (46-116) U/L Total Protein 5.9 L (6.4-8.2) g/dL Albumin 2.9 L (3.4-5.0) g/dL Globulin 3.0 (2.3-3.5) g/dL Albumin/Globulin Ratio 1.0 L (1.2-2.2) Med Orders - Current: Current Medications Al Hydroxide/Mg Hydroxide (Mag-Al Plus) 30 ml PO Q4H PRN PRN Reason: Constipation Albuterol (Ventolin Hfa) 0 gm INH Q2H PRN PRN Reason: Dyspnea Albuterol/Ipratropium (Duoneb 3.0-0.5 Mg/3 Ml) 3 ml NEB QIDRT [facility] Last Admin: 09/24/16 10:44 Dose: 3 ml Aspirin (Ecotrin) 325 mg PO BID [facility] Last Admin: 09/24/16 09:44 Dose: 325 mg Bisacodyl (Dulcolax) 10 mg PO DAILY PRN PRN Reason: Constipation Diazepam (Valium) 5 mg IVPUSH Q6H PRN PRN Reason: Spasms Diphenhydramine HCl (Benadryl) 25 mg IVPUSH Q4H PRN PRN Reason: Itching Docusate Sodium (Colace) 100 mg PO BID PRN PRN Reason: Constipation Hydromorphone HCl (Dilaudid) 0.5 mg IVPUSH Q1H PRN PRN Reason: Pain Last Admin: 09/22/16 10:49 Dose: 0.5 mg Lactated Ringer's (Ringers, Lactated) 1,000 mls @ 100 mls/hr IV ASDIRECTED [facility] Ketorolac Tromethamine (Toradol) 30 mg IVPUSH Q8H PRN PRN Reason: Pain Stop: 09/27/16 14:04 Magnesium Hydroxide (Milk Of Magnesia) 30 ml PO Q12H PRN PRN Reason: Constipation Morphine Sulfate (Morphine) 2 mg IVPUSH Q2H PRN PRN Reason: Pain Naloxone HCl (Narcan) 0.1 mg IVPUSH ONETIME PRN PRN Reason: Oversedation Ondansetron HCl (Zofran) 4 mg IV Q4H PRN PRN Reason: Nausea/Vomiting Ondansetron HCl (Zofran) 8 mg IVPUSH Q4H PRN PRN Reason: Nausea/Vomiting Oxycodone/Acetaminophen (Percocet 325-5 Mg) 2 tab PO Q4H PRN PRN Reason: Pain Last Admin: 09/24/16 07:16 Dose: 2 tab Polyethylene Glycol (Miralax) 17 gm PO DAILY PRN PRN Reason: Constipation Senna (Senna) 8.6 mg PO BID PRN PRN Reason: Constipation Simvastatin (Zocor) 40 mg PO BEDTIME [facility] Last Admin: 09/23/16 22:07 Dose: 40 mg Sodium Chloride (Saline Flush) 10 ml FLUSH ASDIRECTED PRN PRN Reason: Keep Vein Open Sodium Chloride (Saline Flush) 10 ml FLUSH DAILY [facility] Last Admin: 09/24/16 09:33 Dose: 10 ml Tramadol HCl (Ultram) 100 mg PO Q6H PRN PRN Reason: Pain Last Admin: 09/23/16 03:43 Dose: 100 mg Zolpidem Tartrate (Ambien) 5 mg PO BEDTIME PRN PRN Reason: Sleep Discontinued Medications Bupivacaine HCl/Epinephrine Bitart (Marcaine 0.5%/Epinephrine 1:200,000) Confirm Administered Dose 50 ml .ROUTE .STK-MED ONE Stop: 09/22/16 12:36 Last Admin: 09/22/16 13:02 Dose: 20 ml Dexamethasone (Dexamethasone) Confirm Administered Dose 4 mg .ROUTE .STK-MED ONE Stop: 09/22/16 10:54 Diazepam (Valium.) 10 mg PO ONETIME ONE Stop: 09/21/16 21:46 Last Admin: 09/21/16 21:56 Dose: 10 mg Diazepam (Valium) 5 mg IVPUSH ONETIME ONE Stop: 09/22/16 14:31 Last Admin: 09/22/16 14:18 Dose: 5 mg Fentanyl (Sublimaze) Confirm Administered Dose 250 mcg .ROUTE .STK-MED ONE Stop: 09/22/16 10:53 Glycopyrrolate () Confirm Administered Dose 1 mg .ROUTE .STK-MED ONE Stop: 09/22/16 10:54 Hydromorphone HCl (Dilaudid) 0.5 mg IVPUSH ONETIME ONE Stop: 09/22/16 00:44 Last Admin: 09/22/16 01:28 Dose: 0.5 mg Clindamycin Phosphate 600 mg/ (Sodium Chloride) 54 mls @ 100 mls/hr IV Q8H [facility] Stop: 09/23/16 04:03 Last Admin: 09/23/16 03:45 Dose: 100 mls/hr Lactated Ringer's (Ringers, Lactated) 1,000 mls @ 125 mls/hr IV ASDIRECTED [facility] Last Admin: 09/22/16 09:32 Dose: 125 mls/hr Lidocaine HCl (Xylocaine 2% Jelly) 10 ml MUCMEM ONETIME STA Stop: 09/23/16 04:02 Last Admin: 09/23/16 04:38 Dose: 10 ml Midazolam HCl (Versed 1 Mg/Ml) Confirm Administered Dose 2 mg .ROUTE .STK-MED ONE Stop: 09/22/16 10:53 Morphine Sulfate (Morphine) 4 mg IVPUSH ONETIME ONE Stop: 09/21/16 23:11 Last Admin: 09/21/16 23:17 Dose: 4 mg Neostigmine Methylsulfate (Neostigmine) Confirm Administered Dose 5 mg .ROUTE .STK-MED ONE Stop: 09/22/16 10:54 Ondansetron HCl (Zofran) Confirm Administered Dose 4 mg .ROUTE .STK-MED ONE Stop: 09/22/16 10:54 Oxycodone/Acetaminophen (Percocet 325-5 Mg) 2 tab PO ONETIME STA Stop: 09/21/16 21:46 Last Admin: 09/21/16 21:56 Dose: 2 tab Povidone Iodine (Betadine 10% Soln) Confirm Administered Dose 1 ml .ROUTE .STK- MED ONE Stop: 09/22/16 13:13 Propofol (Diprivan 20 Ml) Confirm Administered Dose 200 mg .ROUTE .STK-MED ONE Stop: 09/22/16 10:54 Rocuronium [place] (Zemuron) Confirm Administered Dose 50 mg .ROUTE .STK-MED ONE Stop: 09/22/16 10:54 Sodium Chloride (Saline Flush) 10 ml FLUSH ASDIRECTED PRN PRN Reason: Keep Vein Open Last Admin: 09/21/16 23:18 Dose: 10 ml Tamsulosin HCl (Flomax) 0.4 mg PO ONETIME ONE Stop: 09/23/16 21:01 Last Admin: 09/23/16 22:14 Dose: 0.4 mg *Q Meaningful Use (DIS) - VTE *Q VTE Criteria *Q: - Stroke *Q Stroke Criteria *Q: - AMI *Q AMI Criteria *Q:
[2016-09-24] MEDS: traMADol 50 MG Tab PO PRN (12:44)
--- NOTE | 2016-09-24 17:48 | PCM.CONS ---
H&P History of Present Illness - General Date of Service: 09/23/16 Admit Problem/Dx: Patient is doing well. He is POD 1 from a left hip repair. He is ambulating well. He denies any pain issues at this time. He does not have any urinary issues. Source of Information: Patient 9 Pain Score (Numeric/FACES): 6 - Related Data Allergies/Adverse Reactions: Allergies Allergy/AdvReac Type Severity Reaction Status Date / Time Penicillins Allergy Rash Verified 09/21/16 21:35 Home Medications: Home Meds Simvastatin [Zocor] 40 mg PO BEDTIME 09/21/16 [History] Acetaminophen/oxyCODONE [Percocet 325-5 MG] 2 tab PO Q4H PRN #120 tablet [Rx] Aspirin [Ecotrin] 325 mg PO BID #60 tab.ec 09/24/16 [Rx] Past Medical History Cardiovascular History: Reports: High cholesterol Social & Family History - Caffeine Use Caffeine Use: Reports: Coffee - Alcohol Use Date of Last Drink: 10/18/89 - Recreational Drug Use Recreational Drug Use: Yes H&P Review of Systems - Review of Systems: Review Of Systems: See Below Musculoskeletal: Reports: joint pain Skin: Reports: no symptoms Exam - Exam Exam: See Below - Vital Signs Vital Signs: Last Vital Signs Temp 37.3 C 09/24/16 08:03 Pulse 70 09/24/16 10:45 Resp 12 09/24/16 08:03 BP 107/70 09/24/16 08:03 Pulse Ox 87 L 09/24/16 09:47 Weight: 160 lb 11.472 oz - Exam General: alert, oriented Extremities: normal inspection, normal pulses Skin: warm, dry, intact Neurological: cranial nerves intact Neuro Extensive - Mental Status: alert, oriented x3, normal mood/affect Psychiatric: alert, normal affect, normal mood - Patient Data Lab Results last 24 hrs: Laboratory Results - last 24 hr 09/24/16 09/24/16 Range/Units 04:55 04:55 WBC 11.9 H (4.5-11.0) K/uL RBC 3.51 L (4.30-5.90) M/uL Hgb 10.8 L (12.0-15.0) g/dL Hct 32.9 L (40.0-54.0) % MCV 94 (80-98) fL MCH 31 (27-31) pg MCHC 33 (32-36) % Plt Count 241 (150-400) K/uL Neut % (Auto) 72 H (36-66) % Lymph % (Auto) 14 L (24-44) % [place] % (Auto) 11 H (2-6) % Eos % (Auto) 2 (2-4) % Baso % (Auto) 0 (0-1) % Sodium 139 L (140-148) mmol/L Potassium 3.4 L (3.6-5.2) mmol/L Chloride 101 (100-108) mmol/L Carbon Dioxide 31 (21-32) mmol/L Anion Gap 10.4 (5.0-14.0) mmol/L BUN 14 (7-18) mg/dL Creatinine 1.0 (0.8-1.3) mg/dL Est Cr Clr Drug Dosing 81.23 mL/min Estimated GFR (MDRD) > 60 (>60) Glucose 89 (74-106) mg/dL Calcium 7.9 L (8.5-10.1) mg/dL Total Bilirubin 0.5 (0.2-1.0) mg/dL AST 24 (15-37) U/L ALT 19 (12-78) U/L Alkaline Phosphatase 18 L (46-116) U/L Total Protein 5.9 L (6.4-8.2) g/dL Albumin 2.9 L (3.4-5.0) g/dL Globulin 3.0 (2.3-3.5) g/dL Albumin/Globulin Ratio 1.0 L (1.2-2.2) Result Diagrams: 09/24/16 04:55 09/24/16 04:55 Consult PN Assessment/Plan POD#: 1 Problem List Initiated/Reviewed/Updated: Yes Plan: Patient is to continue with Pt/OT and pain control. We will plan to discharge him tomorrow.
--- NOTE | 2016-09-24 17:51 | PCM.CONS ---
H&P History of Present Illness - General Date of Service: 09/23/16 Admit Problem/Dx: Patient is doing well. He is POD 1 from a left hip repair. He is ambulating well. He denies any pain issues at this time. He does not have any urinary issues. Source of Information: Patient History Limitations: Reports: No limitations - History of Present Illness Initial Comments - Free Text/Narative: Patient is POD 2 from a left hip repair. Patient is doing well. He has no concerns at this time. He is ambulating well. His pain is under control at this time. He want to go home today. 9 Pain Score (Numeric/FACES): 6 - Related Data Allergies/Adverse Reactions: Allergies Allergy/AdvReac Type Severity Reaction Status Date / Time Penicillins Allergy Rash Verified 09/21/16 21:35 Home Medications: Home Meds Simvastatin [Zocor] 40 mg PO BEDTIME 09/21/16 [History] Acetaminophen/oxyCODONE [Percocet 325-5 MG] 2 tab PO Q4H PRN #120 tablet [Rx] Aspirin [Ecotrin] 325 mg PO BID #60 tab.ec 09/24/16 [Rx] Past Medical History Cardiovascular History: Reports: High cholesterol Social & Family History - Caffeine Use Caffeine Use: Reports: Coffee - Alcohol Use Date of Last Drink: 10/18/89 - Recreational Drug Use Recreational Drug Use: Yes H&P Review of Systems - Review of Systems: Review Of Systems: See Below Musculoskeletal: Reports: no symptoms Skin: Reports: no symptoms Exam - Exam Exam: See Below - Vital Signs Vital Signs: Last Vital Signs Temp 37.3 C 09/24/16 08:03 Pulse 70 09/24/16 10:45 Resp 12 09/24/16 08:03 BP 107/70 09/24/16 08:03 Pulse Ox 87 L 09/24/16 09:47 Weight: 160 lb 11.472 oz - Exam General: alert, oriented Extremities: normal inspection, normal pulses Peripheral Pulses: 2+: dorsalis pedis (L), dorsalis pedis (R) Skin: warm, dry, intact Neurological: cranial nerves intact, reflexes equal bilateral Neuro Extensive - Mental Status: alert, oriented x3, normal mood/affect Neuro Extensive - Motor, Sensory, Reflexes: CN II-XII intact, normal gait Psychiatric: alert - Patient Data Lab Results last 24 hrs: Laboratory Results - last 24 hr 09/24/16 09/24/16 Range/Units 04:55 04:55 WBC 11.9 H (4.5-11.0) K/uL RBC 3.51 L (4.30-5.90) M/uL Hgb 10.8 L (12.0-15.0) g/dL Hct 32.9 L (40.0-54.0) % MCV 94 (80-98) fL MCH 31 (27-31) pg MCHC 33 (32-36) % Plt Count 241 (150-400) K/uL Neut % (Auto) 72 H (36-66) % Lymph % (Auto) 14 L (24-44) % [place] % (Auto) 11 H (2-6) % Eos % (Auto) 2 (2-4) % Baso % (Auto) 0 (0-1) % Sodium 139 L (140-148) mmol/L Potassium 3.4 L (3.6-5.2) mmol/L Chloride 101 (100-108) mmol/L Carbon Dioxide 31 (21-32) mmol/L Anion Gap 10.4 (5.0-14.0) mmol/L BUN 14 (7-18) mg/dL Creatinine 1.0 (0.8-1.3) mg/dL Est Cr Clr Drug Dosing 81.23 mL/min Estimated GFR (MDRD) > 60 (>60) Glucose 89 (74-106) mg/dL Calcium 7.9 L (8.5-10.1) mg/dL Total Bilirubin 0.5 (0.2-1.0) mg/dL AST 24 (15-37) U/L ALT 19 (12-78) U/L Alkaline Phosphatase 18 L (46-116) U/L Total Protein 5.9 L (6.4-8.2) g/dL Albumin 2.9 L (3.4-5.0) g/dL Globulin 3.0 (2.3-3.5) g/dL Albumin/Globulin Ratio 1.0 L (1.2-2.2) Result Diagrams: 09/24/16 04:55 09/24/16 04:55 Consult PN Assessment/Plan Problem List Initiated/Reviewed/Updated: Yes My Orders last 24 hours: Patient is going home today. He is doing well. Dr. Nieto will call [facility] and line up someone to recheck him in 2 weeks. He was given percocet and ASA for home.
== END 2016-09-24 13:02 | disposition home health service (06) | DRG 482 ==
LOC: JP.ED 21:23 → JP.MS 09-22 00:43
PROVIDERS: ADMIT Hospitalist; ATTEND Internal Medicine
PROC: 0QS706Z Reposition Left Upper Femur with Intramedullary Internal Fixation Device, Open Approach (ICD-10-PCS; principal; 2016-09-22)
DX: S72.145A Nondisplaced intertrochanteric fracture of left femur, initial encounter for closed fracture (principal); W00.0XXA Fall on same level due to ice and snow, initial encounter; Y93.29 Activity, other involving ice and snow; Y92.828 Other wilderness area as the place of occurrence of the external cause; E78.00 Pure hypercholesterolemia, unspecified; Z79.82 Long term (current) use of aspirin; Z88.0 Allergy status to penicillin; R33.8 Other retention of urine; R09.02 Hypoxemia
CPT/HCPCS: 36415; 71020; 71020-26; 73552-26-LT; 73552-LT; 73700-LT; 76000; 80048; 80053; 85025; 93005; 94640; 94640-76; 94762; 96374; 97110-GP; 97116-GP; 97162-GP; 97165-GO; 97530-GP; 97535-GO; 97535-GP; 99285-25; A9270-GY; C1713; J1100; J1170; J2250; J2270; J2405; J2704; J3010; J3360; J7050; J7120; J7620; S0077